=== PATIENT | male | born 1990 | race Caucasian/White ===

== ENCOUNTER 2017-02-26 06:00 | Emergency (ER) | payer SELFPAY ==
[2017-02-26 07:54] LABS: BUN/CREATININE RATIO 8 (0-10)
[2017-02-26 08:13] LABS: HEMOGLOBIN 16.3 gm/dl (14.0-17.5); RED BLOOD COUNT 4.98 M/UL (4.20-5.50)
== END 2017-02-26 09:15 | disposition home or self-care (01) ==
LOC: ER1 06:00
PROVIDERS: Physician Assistant
DX: N39.0 Urinary tract infection, site not specified (principal); R31.0 Gross hematuria; F17.200 Nicotine dependence, unspecified, uncomplicated
CPT/HCPCS: 36415; 80053; 81001; 85025; 87086; 99283